=== PATIENT | female | born 1975 | race African-American/Black ===

== ENCOUNTER 2017-05-17 21:13 | Emergency (ER) | payer MEDICAID ==
[~2017-05-17] VITALS: Ht 157.5 cm; Wt 63.5 kg
--- NOTE | 2017-05-17 21:26 | Emergency Room Report ---
History of Present Illness General Source: Patient Present Illness HPI Is a 41-year-old female with no past medical history. She does have a history of anemia secondary to heavy menstrual flow. She presents with chief complaint of abdominal pain has been going on for about 2 weeks now. Been getting worse in the last few days and severe tonight. Pain is diffuse but mostly left side. Sharp in nature. She has intermittent gross hematuria. Also noticed some weight loss and a mass to the right torso rib area. No fever or chills. Crestone nauseous but no vomiting. No dysuria frequency. Pain is 9/10. Allergies: Coded Allergies: ASPIRIN (Verified Allergy, Unknown, 05/17/17) PENICILLINS (Verified Allergy, Unknown, 05/17/17) Patient History Past Medical History: none, see triage record, old chart reviewed Past Surgical History: none Pertinent Family History: none Social History: Denies: smoking Now: No Immunizations: other Reviewed Nursing Documentation: PMH: Agreed, PSxH: Agreed Review of Systems Eye: Denies: eye pain, blurred vision ENT: Denies: ear pain, nose congestion, throat swelling Respiratory: Denies: cough, shortness of breath Cardiovascular: Denies: chest pain, palpitations Gastrointestinal: Reports: abdominal pain, Denies: diarrhea, nausea, vomiting Musculoskeletal: Denies: back pain, joint pain Skin: Denies: rash Neurological: Denies: headache, numbness Endocrine: Denies: increased thirst, increased urine Hematologic/Lymphatic: Denies: easy bruising All Other Systems: negative except mentioned in HPI Physical Exam vitals unremarkable Sp02 EP Interpretation: reviewed, normal General Appearance: well appearing, alert, mild distress - From pain Head: normocephalic, atraumatic Eyes: bilateral eye PERRL, bilateral eye EOMI ENT: hearing grossly normal, normal pharynx Neck: full range of motion, supple, no meningismus Respiratory: lungs clear, normal breath sounds, other - Over the right mid axillary line/inferior ribs there is a mobile tender 5 cm. Consistency of a lipoma Cardiovascular #1: regular rate, rhythm, no murmur Gastrointestinal: normal bowel sounds, no organomegaly, no bruit, non-distended , tenderness - Diffuse but mostly mid lower quadrant. Fullness t the left lower quadrant Musculoskeletal: back normal, gait/station normal, normal range of motion Psychiatric: mood/affect normal Skin: warm/dry Medical Decision Making Diagnostic Impression: Primary Impression: Abdominal pain Qualified Codes: R10.84 - Generalized abdominal pain Additional Impressions: UTI (urinary tract infection) Qualified Codes: N30.00 - Acute cystitis without hematuria Lipoma of chest wall Anemia Qualified Codes: D64.9 - Anemia, unspecified Proteinuria Qualified Codes: R80.9 - Proteinuria, unspecified ER Course Patient with abdominal pain. Nonspecific. May be an early gastroenteritis/ ileus. No evidence of obstruction or acute abdomen. No tumor mass. We'll discharge home. Lab Results Impression labs unremarkable CT/MRI/US Diagnostic Results CT/MRI/US Diagnostic Results : Imaging Test Ordered: CT abdomen and pelvis Impression unremarkable per radiologist Status: improved Disposition: HOME, SELF-CARE Condition: Stable Scripts Ondansetron Odt* (ZOFRAN ODT*) 4 Mg Tab.rapdis 4 MG ORAL Q6H Y for Nausea & Vomiting, #10 TAB 0 Refills Prov: MIGUEL RUFFIN M.D. 05/18/17 Ibuprofen* (MOTRIN*) 600 Mg Tablet 600 MG ORAL THREE TIMES A DAY, #30 TAB 0 Refills Prov: MIGUEL RUFFIN M.D. 05/18/17 Patient Instructions: Abdominal Pain, Adult Additional Instructions: Followup with your DrLisa in 2-3 days. Return if symptom worsen. MIGUEL RUFFIN M.D. May 17, 2017 21:26
[2017-05-17] MEDS ORDERED: HYDROmorphone 1mg/ml Carpuject IVP ONE (21:30)
[2017-05-17 21:31] VITALS: BP 128/83
[2017-05-17 21:45] LABS: APPEARANCE,URINE SLIGHTLY CLOUDY; KETONES,URINE NEGATIVE (NEGATIVE); LEUKOCYTE ESTERASE ,URINE 3+ (NEGATIVE); NITRITE,URINE NEGATIVE (NEGATIVE); PH,URINE 7 (4.5-8.0); PROTEIN,URINE 2+ (NEGATIVE); UROBILINOGEN,URINE NORMAL MG/DL (0.0-1.0)
[2017-05-17 22:00] LABS: RBC,URINE 30-40 /HPF (0 - 2); WBC,URINE 40-60 /HPF (0 - 2)
[2017-05-17 22:01] LABS: BACTERIA,URINE MODERATE /HPF; SQUAMOUS EPITHELIAL CELL,UR MODERATE /LPF (NONE/OCC)
[2017-05-17 22:05] LABS: BASOPHILS % (AUTO) 2.1 % (0.0-2.0); EOSINOPHILS % (AUTO) 0.6 % (0.0-3.0); LYMPHOCYTES % (AUTO) 34.8 % (20.0-45.0); MEAN CORPUSCULAR HEMOGLOBIN 22.1 PG (27.0-31.0); MEAN CORPUSCULAR HGB CONC 29.6 G/DL (32.0-36.0); MEAN CORPUSCULAR VOLUME 75 FL (80-99); MEAN PLATELET VOLUME 7.2 FL (6.5-10.1); MONOCYTES % (AUTO) 8.5 % (1.0-10.0); PLATELET COUNT 359 K/UL (150-450); RED BLOOD COUNT 4.11 M/UL (4.20-5.40); WHITE BLOOD COUNT 7.9 K/UL (4.8-10.8)
[2017-05-17 22:13] LABS: ALANINE AMINOTRANSFERASE 22 U/L (12-78); ALBUMIN/GLOBULIN RATIO 0.8 (1.0-2.7); ANION GAP 10 (5-15); ASPARTATE AMINO TRANSFERASE 23 U/L (15-37); CARBON DIOXIDE 26 MMOL/L (21-32); CHLORIDE 104 MMOL/L (98-107); CREATININE 0.9 MG/DL (0.55-1.30); GLOMERULAR FILTRATION RATE > 60 mL/min (>60); LIPASE 228 U/L (73-393); POTASSIUM 3.3 MMOL/L (3.5-5.1); SODIUM 140 MMOL/L (136-145); TOTAL PROTEIN 7.8 G/DL (6.4-8.2)
[2017-05-17 22:15] LABS: INR 0.9 (0.9-1.1); PROTHROMBIN TIME 9.8 SEC (9.30-11.50)
[2017-05-17] MEDS ORDERED: cefTRIAXone 1 GM in NS 55 ML IVPB ONE (22:15)
[2017-05-17 23:31] VITALS: BP 100/55
[2017-05-18] MEDS ORDERED: IBUPROFEN600 MG ORAL (00:33)
[2017-05-18] MEDS ORDERED: ZOFRAN ODT4 MG ORAL (00:33)
[2017-05-18 01:08] VITALS: BP 105/66
--- NOTE | 2017-05-18 09:18 | Diagnostic Imaging Report ---
Clinical Indication: Abdominal pain has been going on for 2 weeks, getting worse in the last 2 days and severe tonight, diffuse mostly left-sided, sharp in nature. Intermittent gross hematuria and weight loss. Palpable mass in the left rib area. Nausea but no vomiting Technique: No oral contrast utilized, per emergency room physician request IV administration nonionic contrast. Venous phase spiral acquisition obtained through the abdomen and pelvis. Multiplanar reconstructions were generated. Total dose length product 839 mGycm. CTDIvol(s) 14, 11 mGy. Dose reduction achieved using automated exposure control Comparison: None Findings: There are a few colonic diverticula. No evidence of diverticulitis. The appendix is normal. No small bowel distention. The stomach is distended. Distal esophagus is mildly dilated with gas. The gastric antrum is somewhat distended with equivocal wall thickening. Duodenum is unremarkable. Small bowel is unremarkable. No free or loculated intraperitoneal air or fluid. Gallbladder, liver, bile ducts, pancreas, spleen, adrenals, kidneys are unremarkable. No retroperitoneal or mesenteric mass or adenopathy. No pelvic mass or adenopathy. Lung bases demonstrate posterior dependent atelectatic changes. The bones are unremarkable. 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 Impression: Nonspecific distention of the stomach. No definite downstream obstruction lesion Equivocal mild wall thickening of the distal gastric antrum, mild gastritis not excludable No acute process otherwise Dependent pulmonary parenchymal atelectatic changes incidentally noted This agrees with the preliminary interpretation provided overnight by [facility]eradiology service. The CT scanner at [facility] is accredited by the [employer] and the scans are performed using protocols designed to limit radiation exposure to as low as reasonably achievable to attain images of sufficient resolution adequate for diagnostic evaluation.
== END 2017-05-18 01:08 | disposition home or self-care (01) ==
LOC: EDBD 21:13 → EMR 21:30
DX: R10.9 Unspecified abdominal pain (principal); N39.0 Urinary tract infection, site not specified; D17.79 Benign lipomatous neoplasm of other sites; D64.9 Anemia, unspecified; Z88.6 Allergy status to analgesic agent; Z88.0 Allergy status to penicillin
CPT/HCPCS: 36415; 74177; 80053; 81003; 81025; 83690; 85025; 85610; 85730; 87086; 87181; 96361; 96365; 96375; 96376; 99284; J0696; J1170; J2405; Q9967